=== PATIENT | male | born 1945 | race African-American/Black ===

== ENCOUNTER 2017-01-22 09:09 | Emergency (ER) | payer OTHER ==
[~2017-01-22] VITALS: Ht 167.6 cm; Wt 68.0 kg
[2017-01-22 10:20] VITALS: BP 156/105
== END 2017-01-22 12:02 | disposition home or self-care (01) ==
LOC: ER 09:13
DX: K40.90 Unilateral inguinal hernia, without obstruction or gangrene, not specified as recurrent (principal); N50.89 Other specified disorders of the male genital organs; I10 Essential (primary) hypertension; Z86.19 Personal history of other infectious and parasitic diseases
CPT/HCPCS: 76870

== ENCOUNTER → 2017-01-25 | Outpatient (CLI) | payer OTHER ==
[2017-01-25 15:46] LABS: Urine RBC None Seen /hpf (0 - 3)
[2017-01-25 16:09] LABS: Basophils # (auto) 0.1 uL; Basophils % (auto) 2.1 % (0.0-2.0); Eosinophils # (auto) 0.1 uL; Hemoglobin 15.6 g/dL (13.5-17.5); Lymphocytes # (auto) 2.8 uL; Lymphocytes % (auto) 49.4 % (10.0-50.0); Mean Corpuscular Hemoglobin 30.4 pg (28.0-32.0); Mean Corpuscular Hgb Conc. 33.2 g/dL (32.0-36.0); Mean Corpuscular Volume 91.7 fL (80.0-100.0); Mean Platelet Volume 9.1 fL (7.4-10.4); Monocytes # (auto) 0.6 uL; Monocytes % (auto) 11.1 % (0.0-12.0); Neutrophils % (auto) 36.4 % (37.0-80.0); Platelet Count (auto) 409 10^3/uL (140-450); Red Cell Distribution Width 12.1 % (11.6-16.0); White Blood Cell 5.6 10^3/uL (4.4-10.8)
[2017-01-25 16:26] LABS: INR 0.96 (0.9-1.15); Partial Thromboplastin Time 26.6 sec (22.64-33.71); Prothrombin Time 10.4 sec (9.37-12.3)
[2017-01-25 16:30] LABS: Albumin 4.3 g/dL (3.4-5.0); BUN/Creatinine Ratio 9.3; Bilirubin, Total 1.2 mg/dL (0.2-1.0); Calcium 9.3 mg/dL (8.5-10.1); Potassium 3.3 mmol/L (3.5-5.1); Total Protein 9.2 g/dL (6.4-8.2)
[2017-01-25 17:43] LABS: Urine Bilirubin Negative (Negative); Urine Blood Negative /uL (Negative); Urine Color Yellow (Yellow); Urine Glucose Normal (Normal); Urine Ketone 1+ (Negative); Urine Mucus FEW (None Seen); Urine Nitrite Negative (Negative); Urine Squamous Epithelial Cell FEW /hpf (<5); Urine Urobilinogen Normal (Negative); Urine pH 5.5 (5.0-8.0)
== END | disposition home or self-care (01) ==
LOC: LAB 15:40
PROVIDERS: ATTEND Internal Medicine
DX: B18.1 Chronic viral hepatitis B without delta-agent (principal); I10 Essential (primary) hypertension
CPT/HCPCS: 36415; 80053; 80061; 81001; 82043; 82105; 82784; 84146; 84153; 84403; 84439; 84443; 85025; 85610; 85652; 85730; 86334; 86335; 87522

== ENCOUNTER → 2017-04-07 | Outpatient (CLI) | payer OTHER | END | disposition home or self-care (01) | LOC: LAB 06:40 | PROVIDERS: ATTEND Urology | DX: I10 Essential (primary) hypertension (principal); E29.1 Testicular hypofunction | CPT/HCPCS: 84154 ==

== ENCOUNTER → 2018-01-11 | Outpatient (CLI) | payer OTHER ==
[2018-01-11 11:44] LABS: Basophils # (auto) 0 uL; Eosinophils # (auto) 0 uL; Eosinophils % (auto) 0.6 % (0.0-7.0); Hematocrit 43.1 % (41.0-53.0); Hemoglobin 14.3 g/dL (13.5-17.5); Lymphocytes # (auto) 2.3 uL; Lymphocytes % (auto) 54.5 % (10.0-50.0); Mean Corpuscular Hemoglobin 29.5 pg (28.0-32.0); Mean Corpuscular Hgb Conc. 33.3 g/dL (32.0-36.0); Mean Corpuscular Volume 88.8 fL (80.0-100.0); Monocytes # (auto) 0.5 uL; Monocytes % (auto) 10.9 % (0.0-12.0); Neutrophils # (auto) 1.4 uL; Nucleated Red Blood Cells % 0.1 %; Platelet Count (auto) 395 10^3/uL (140-450); Red Blood Cells 4.85 10^6/uL (4.5-5.90); Red Cell Distribution Width 13.3 % (11.8-14.3); White Blood Cell 4.2 10^3/uL (4.4-10.8)
[2018-01-11 11:56] LABS: INR 0.95 (0.9-1.15); Prothrombin Time 10.4 sec (9.37-12.3)
[2018-01-11 12:25] LABS: Albumin 4.1 g/dL (3.4-5.0); BUN/Creatinine Ratio 10.2; Bilirubin, Total 1.7 mg/dL (0.2-1.0); Calcium 8.9 mg/dL (8.5-10.1); Total Protein 8.8 g/dL (6.4-8.2)
[2018-01-11 12:27] LABS: Free T4 (Free Thyroxine) 1.06 ng/dL (0.89-1.76); Prostate Specific Antigen 11.89 ng/mL (0.0-4.0)
[2018-01-12 08:06] LABS: Immunoglobulin G, Serum 1529 mg/dL (700-1600)
== END | disposition home or self-care (01) ==
LOC: LAB 11:01
PROVIDERS: ATTEND Internal Medicine
DX: I10 Essential (primary) hypertension (principal); B18.2 Chronic viral hepatitis C
CPT/HCPCS: 36415; 80053; 80061; 82105; 82784; 84153; 84439; 84443; 85025; 85610; 85652; 86334

== ENCOUNTER → 2018-01-17 | Outpatient (CLI) | payer OTHER ==
[2018-01-17 11:19] LABS: Urine Bacteria FEW /hpf (None Seen); Urine Blood Negative /uL (Negative); Urine Mucus FEW (None Seen); Urine Specific Gravity 1.023 (1.001-1.035); Urine WBC 4 /hpf (0 - 3)
== END | disposition home or self-care (01) ==
LOC: LAB 10:41
PROVIDERS: ATTEND Internal Medicine
DX: I10 Essential (primary) hypertension (principal); B18.2 Chronic viral hepatitis C
CPT/HCPCS: 81001; 82270

== ENCOUNTER → 2019-01-11 | Outpatient (CLI) | payer OTHER ==
[2019-01-11 11:10] LABS: Basophils # (auto) 0.2 uL; Basophils % (auto) 3.8 % (0.0-2.0); Eosinophils # (auto) 0 uL; Hematocrit 43.9 % (41.0-53.0); Hemoglobin 14.4 g/dL (13.5-17.5); Lymphocytes # (auto) 2.3 uL; Lymphocytes % (auto) 45.8 % (10.0-50.0); Mean Corpuscular Hemoglobin 28.8 pg (28.0-32.0); Mean Corpuscular Hgb Conc. 32.9 g/dL (32.0-36.0); Mean Corpuscular Volume 87.6 fL (80.0-100.0); Monocytes # (auto) 0.6 uL; Monocytes % (auto) 11.6 % (0.0-12.0); Neutrophils # (auto) 1.9 uL; Neutrophils % (auto) 37.8 % (37.0-80.0); Nucleated Red Blood Cells % 0.1 %; Platelet Count (auto) 384 10^3/uL (140-450); Red Blood Cells 5.01 10^6/uL (4.5-5.90); Red Cell Distribution Width 13.5 % (11.8-14.3); White Blood Cell 5.1 10^3/uL (4.4-10.8)
[2019-01-11 11:26] LABS: INR 0.93 (0.9-1.15)
[2019-01-11 11:38] LABS: Urine Bacteria NONE SEEN /hpf (None Seen); Urine Blood Negative /uL (Negative); Urine Specific Gravity 1.014 (1.001-1.035); Urine WBC <1 /hpf (0 - 3)
[2019-01-11 11:53] LABS: Free T4 (Free Thyroxine) 1.01 ng/dL (0.89-1.76); Potassium 3.7 mmol/L (3.5-5.1); Prostate Specific Antigen 12.28 ng/mL (0.0-4.0)
[2019-01-11 11:54] LABS: Folate (Folic Acid) > 24.00 ng/mL (5.38-24)
[2019-01-11 12:06] LABS: Albumin 4.3 g/dL (3.4-5.0); Bilirubin, Total 1.2 mg/dL (0.2-1.0); Calcium 9.1 mg/dL (8.5-10.1); Total Protein 8.9 g/dL (6.4-8.2)
[2019-01-12 07:06] LABS: RPR Non Reactive (Non Reactive)
== END | disposition home or self-care (01) ==
LOC: LAB 10:26
PROVIDERS: ATTEND Internal Medicine
DX: I10 Essential (primary) hypertension (principal); R41.3 Other amnesia
CPT/HCPCS: 36415; 80053; 80061; 81001; 82043; 82105; 82607; 82746; 84153; 84403; 84439; 84443; 85025; 85610; 85652; 85730; 86592

== ENCOUNTER → 2019-10-30 | Outpatient (CLI) | payer OTHER ==
[2019-10-30 11:10] LABS: Urine Bacteria NONE SEEN /hpf (None Seen); Urine Blood Negative /uL (Negative); Urine Mucus FEW (None Seen); Urine Specific Gravity 1.019 (1.001-1.035); Urine WBC 2 /hpf (0 - 3)
[2019-10-30 11:13] LABS: Basophils # (auto) 0.1 uL; Eosinophils # (auto) 0.1 uL; Eosinophils % (auto) 1.1 % (0.0-7.0); Mean Corpuscular Hemoglobin 25.1 pg (28.0-32.0); Monocytes # (auto) 0.5 uL
[2019-10-30 11:18] LABS: Basophils % (auto) 1.5 % (0.0-2.0); Hematocrit 37.2 % (41.0-53.0); Lymphocytes # (auto) 2.4 uL; Lymphocytes % (auto) 47.9 % (10.0-50.0); Mean Corpuscular Hgb Conc. 32.2 g/dL (32.0-36.0); Mean Corpuscular Volume 78.1 fL (80.0-100.0); Monocytes % (auto) 10.1 % (0.0-12.0); Neutrophils % (auto) 39.4 % (37.0-80.0); Platelet Count (auto) 408 10^3/uL (140-450); Red Blood Cells 4.76 10^6/uL (4.5-5.90); Red Cell Distribution Width 15.8 % (11.8-14.3)
[2019-10-30 11:21] LABS: INR 0.98 (0.9-1.15)
[2019-10-30 11:26] LABS: Albumin 3.8 g/dL (3.4-5.0); Potassium 3.3 mmol/L (3.5-5.1)
[2019-10-30 11:34] LABS: BUN/Creatinine Ratio 10.2; Bilirubin, Total 0.8 mg/dL (0.2-1.0); Calcium 9.2 mg/dL (8.5-10.1); Free T4 (Free Thyroxine) 1.06 ng/dL (0.89-1.76); Prostate Specific Antigen 16.37 ng/mL (0.0-4.0); Total Protein 8.3 g/dL (6.4-8.2)
== END | disposition home or self-care (01) ==
LOC: LAB 10:16
PROVIDERS: ATTEND Internal Medicine
DX: N40.0 Benign prostatic hyperplasia without lower urinary tract symptoms (principal); I10 Essential (primary) hypertension; B18.2 Chronic viral hepatitis C; R97.21 Rising PSA following treatment for malignant neoplasm of prostate
CPT/HCPCS: 36415; 80053; 80061; 81001; 82043; 82105; 84153; 84439; 84443; 85025; 85610; 85652

== ENCOUNTER → 2020-01-25 | Outpatient (CLI) | payer OTHER | END | disposition home or self-care (01) | LOC: LAB 08:39 | PROVIDERS: ATTEND Internal Medicine | DX: Z01.810 Encounter for preprocedural cardiovascular examination (principal) | CPT/HCPCS: 36415; 82565; 84520 ==